=== PATIENT | male | born 1930 | race Caucasian/White ===

== ENCOUNTER 2017-12-29 09:21 | Emergency (ER) | payer MEDICARE ==
--- NOTE | 2017-12-29 09:41 | UC ---
General HPI - HPI Summary HPI Summary: Patient presents to urgent care with reports of ongoing leg cramping is occurring at night. Patient states he's had the symptoms since July"or so. " Patient states he's been seen by his primary care doctor and had lab work done. Patient states his "potassium is good" and states for approximately 2 weeks he has had some swelling of his right knee. Patient states it hurts when he walks. Patient states he saw his primary doctor this past Sunday for this and was told to take Tylenol. Patient states he been taking the Tylenol doesn' t help. Patient states he says the cramping is only at nighttime and sometimes seems worse and he came out what's wrong with it. Patient without any new or different pain. Patient without fevers or chills. Patient without nausea or vomiting. No rash. No trauma. No paresthesias. Patient did not take an analgesic today. Pt is on coumadin for a fib. Patient unsure if he took Tylenol yesterday. Pt's medications reviewed this visit. No diuretic noted - History of Current Complaint Stated Complaint: RIGHT LEG CRAMPS Time Seen by Provider: 12/29/17 09:33 Hx Obtained From: Patient Timing: Intermittent Episodes Lasting: Onset Severity: Moderate Current Severity: Mild Associated Signs & Symptoms: Positive: Anticoagulation Therapy - Allergy/Home Medications Allergies/Adverse Reactions: Allergies Allergy/AdvReac Type Severity Reaction Status Date / Time No Known Allergies Allergy Verified 12/29/17 09:37 Home Medications: Home Medications Multivitamins/Minerals TAB* [Theragran/minerals TAB*] 1 tab PO DAILY 12/29/17 [ History Confirmed 12/29/17] proPAFENone TAB* [Rythmol*] 150 mg PO BID 12/29/17 [History Confirmed 12/29/17] PMH/Surg Hx/FS Hx/Imm Hx Previously Healthy: Yes Cardiovascular History: Hypertension, Atrial Fibrillation Respiratory History: COPD - Surgical History Surgical History: Yes Surgery Procedure, Year, and Place: appendectomy age 33, - Family History Known Family History: Positive: Hypertension - Social History Occupation: Retired Lives: With Family Alcohol Use: None Substance Use Type: None Smoking Status (MU): Former Smoker Type: Cigarettes Review of Systems Constitutional: Negative Skin: Negative Musculoskeletal: Other: - right calf, right knee All Other Systems Reviewed And Are Negative: Yes Physical Exam Triage Information Reviewed: Yes Appearance: Well-Appearing, No Pain Distress, Well-Nourished Vital Signs Reviewed: Yes Eyes: Positive: Conjunctiva Clear ENT: Positive: Hearing grossly normal Dental Exam: Normal Neck: Positive: Supple, Nontender, No Lymphadenopathy Respiratory: Positive: No respiratory distress, No accessory muscle use Cardiovascular: Positive: Other: - CBT < 2 sec foot warm 2+ DP, PT 2+ popliteal Musculoskeletal: Positive: Other: - + SLE + full flex/ext knee with mild discomfort lateral aspect + flex/ext ankle + great toe extension mild discomfort lateral aspect joint line neg anterior/posterior drawer neg laxity with joint line testing Pt with mild edema. No pain with palpation of calf. mild discomfort prox calf with direct palp Neurological Exam: Normal Psychological Exam: Normal Skin Exam: Normal Diagnostics - Radiology No standard instances Xray Interpretation: Positive (See Comments) - Patient Name: WILFREDO CROSS Medical Record#: [id number] Ordering Physician: Vero Santana MD Acct.#: [id number] : 1930 Age: 87 Sex: M Location: [facility] Exam Date: 12/29/17 1000 ADM Status: REG ER Order Information: KNEE RIGHT 4+ VWS Accession Number: [id number] CPT: 87930 Indication: RIGHT knee swelling. Leg cramps. Comparison: None. Technique: RIGHT knee: AP, tunnel, lateral, sunrise views. Report: Negative for joint effusion, fracture, or malalignment. Osteophytosis. Mild medial joint space narrowing. Peripheral vascular calcifications. Unremarkable soft tissue contours. IMPRESSION: Kellgren and Gustavo grade 2 osteoarthritis. <Electronically signed by Darnell Luis MD in [place]> 12/29/17 1025 Dictated By: Darnell uLis MD Dictated Date/Time: 12/29/17 1025 Transcribed Date/Time: 12/29/17 1023 Copy to: CC:Moncho Sykes MD; Vero Santana MD Imaging - [facility] - [facility] [address] [address] ph [phone]) ph ([phone]) ph ([phone]) 1 of 1 Radiology Interpretation Completed By: Radiologist Re-Evaluation - Re-Evaluation First Eval Re-Evaluation Time: 10:43 Change: Improved Comment: reviewed xray with pt. pt states feels better following komal wrap. again refusing cane. will f/u with pcp - call sunday. recommend go to ED with any questions or concerns Course/Dx - Course Course Of Treatment: Pt presents wtih several month history of calf R>L cramping - occurs mostly at night. not positional. Pt also with right knee edema x 2 week. no trauma. No progerssion. no joint warmth. Pt ambulatory. d/ w pt regarding electrolytes - pt states scheduled for lab draw on Sun in advance of cardiology appointment with Dr. Marroquin. Pt reports discussion of labs with PCP and has been checked intermittently. Will check xray. APAP. komal for support. anticipate discharge home. pt declined crutch, walker, cane. Pt with htn dx - Differential Dx - Multi-Symptom Provider Diagnoses: arthritis. leg cramping. right knee pain Discharge - Sign-Out/Discharge Documenting (check all that apply): Discharge/Admit/Transfer - Discharge Plan Condition: Stable Disposition: HOME Patient Education Materials: Knee Pain (ED), Leg Cramps (ED) Referrals: Moncho Sykes MD [Primary Care Provider] - Additional Instructions: - wear komal wrap for comfort and support - consider using a cane or walker for balance and support - apply ice (wrapped in a towel) or apply heat for comfort - Okay to take tylenol every 2-3 times a day for pain -when sleeping, place a pillow under your knee to keep them slightly bending when you are resting -if pain progresses or is uncontrolled or you have any other questions or concerns it is recommended you go to the emergency department for questions or concerns - Billing Disposition and Condition Condition: STABLE Disposition: HOME
[2017-12-29 09:49] VITALS: BP 146/53
[2017-12-29] MEDS ORDERED: Acetaminophen TAB* 325 MG PO ONE (10:01)
--- NOTE | 2017-12-29 10:28 | RAD ---
Indication: RIGHT knee swelling. Leg cramps. Comparison: None. Technique: RIGHT knee: AP, tunnel, lateral, sunrise views. Report: Negative for joint effusion, fracture, or malalignment. Osteophytosis. Mild medial joint space narrowing. Peripheral vascular calcifications. Unremarkable soft tissue contours. IMPRESSION: Kellgren and Gustavo grade 2 osteoarthritis.
== END 2017-12-29 10:59 | disposition home or self-care (01) ==
LOC: UCCORT 09:21
DX: R25.2 Cramp and spasm (principal); M19.90 Unspecified osteoarthritis, unspecified site; M25.561 Pain in right knee; I48.91 Unspecified atrial fibrillation; I10 Essential (primary) hypertension; Z79.01 Long term (current) use of anticoagulants; Z87.891 Personal history of nicotine dependence
CPT/HCPCS: 99212; A9270-GY; G0463